=== PATIENT | male | born 1990 | race Two or more races ===

== ENCOUNTER 2024-03-24 17:18 | Emergency (ER) | payer MEDICAID ==
[~2024-03-24] VITALS: Ht 177.8 cm; Wt 90.0 kg
[2024-03-24 18:06] VITALS: BP 138/92; PULSE 98; RESP 18; TEMP 98.1; O2SAT 98
[2024-03-24] MEDS: HYDROcodone-ACET 5/325MG TAB PO ONE (18:12)
[2024-03-24] MEDS: KETOROLAC TROMETH 60MG/2ML VIAL IM ONE (18:12)
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
[2024-03-24] MEDS ORDERED: IBU600T PO (18:37)
[2024-03-24] MEDS ORDERED: HYDR-4902 PO (18:37)
--- NOTE | 2024-03-24 18:51 | DVH ---
CLINICAL INDICATION: injury TECHNIQUE: 2 radiographic views of the left shoulder were obtained. Comparison: None FINDINGS/IMPRESSION: There is elevation of the distal clavicle in relationship to the acromion suggesting an AC separation . There are no fractures and there is no dislocation of the humerus. The visualized joint space is well maintained. The alignment is anatomical. There is no radiopaque foreign body.
== END 2024-03-24 19:11 | disposition home or self-care (01) ==
LOC: ER 17:18
DX: S43.102A Unspecified dislocation of left acromioclavicular joint, initial encounter (principal); V86.96XA Unspecified occupant of dirt bike or motor/cross bike injured in nontraffic accident, initial encounter; Y93.89 Activity, other specified; Y92.89 Other specified places as the place of occurrence of the external cause; Y99.8 Other external cause status
CPT/HCPCS: 73030; 96372; 99283; J1885